=== PATIENT | male | born 1980 | race Caucasian/White ===

== ENCOUNTER 2018-11-07 03:08 | Emergency (ER) | payer MEDICAID ==
[~2018-11-07] VITALS: Ht 180.3 cm; Wt 89.4 kg
[2018-11-07] MEDS ORDERED: ABILIFY15 MG ORAL (03:21)
[2018-11-07] MEDS ORDERED: ATIVAN0.5 MG ORAL (03:21)
[2018-11-07] MEDS ORDERED: TEGRETOL200 MG PO (03:35)
--- NOTE | 2018-11-07 03:36 | Emergency Room Report ---
History of Present Illness General Chief Complaint: Medication Refill Source: Patient Present Illness HPI 37-year-old male, history of insomnia presents for medication refill he has no current complaints, he states he ran out of Tegretol 400 mg at night, denies any chest pain shortness of breath, abdominal pain he does endorse insomnia patient presents for medication refill Allergies: Coded Allergies: PENICILLINS (Verified Allergy, Unknown, 11/07/18) Patient History Past Medical History: see triage record Reviewed Nursing Documentation: PMH: Agreed; PSxH: Agreed Nursing Documentation-PMH History Of Psychiatric Problem: Yes - Bipolar Review of Systems All Other Systems: negative except mentioned in HPI Physical Exam Vital Signs Date Time Temp Pulse Resp B/P (MAP) Pulse Ox O2 Delivery O2 Flow Rate FiO2 11/07/18 03:15 98.1 90 16 128/81 (97) 96 Room Air Sp02 EP Interpretation: reviewed, normal General Appearance: well appearing, no apparent distress, alert Head: normocephalic, atraumatic Eyes: bilateral eye PERRL, bilateral eye EOMI ENT: uvula midline, moist mucus membranes Neck: supple, thyroid normal, supple/symm/no masses Respiratory: lungs clear, no respiratory distress, no retraction, no accessory muscle use Cardiovascular #1: normal peripheral pulses, regular rate, rhythm, no edema, no gallop, no murmur Gastrointestinal: non tender, soft, no guarding, no rebound Musculoskeletal: normal inspection Neurologic: alert, oriented x3 Psychiatric: mood/affect normal Skin: no rash, warm/dry Medical Decision Making Diagnostic Impression: Primary Impression: Encounter for medication refill ER Course Presents for medication refill, a small prescription was provided, patient was counseled to follow-up with a PCP, return precautions discussed Last Vital Signs Date Time Temp Pulse Resp B/P (MAP) Pulse Ox O2 Delivery O2 Flow Rate FiO2 11/07/18 03:15 98.1 90 16 128/81 (97) 96 Room Air Disposition: HOME, SELF-CARE Scripts Carbamazepine (TEGRETOL*) 200 Mg Tablet 400 MG PO QPM, #14 TAB Prov: Prasanna Gore MD 11/07/18 Referrals: [facility] Patient Instructions: Medicine Refill at the Emergency Department Additional Instructions: The patient was provided with discharge instructions, notified to follow-up with a primary care doctor and or specialist in the next 24-48 hours, and to return to the ED if they have worsening of their symptoms. Please note that this report is being documented using [employer] technology. This can lead to erroneous entry secondary to incorrect interpretation by the dictating instrument. Prasanna Gore MD Nov 07, 2018 03:36
[2018-11-07 03:40] VITALS: BP 128/81
--- NOTE | 2018-11-07 03:40 | NUR ---
ER DISCHARGE NOTE: Patient is cleared to be discharged per ERMD, pt is aox4, on room air, with stable vital signs. pt was given dc and prescription instructions, pt was able to verbalize understanding, pt id band removed without complications. pt is able to ambulate with steady gait. pt took all belongings.
== END 2018-11-07 03:40 | disposition home or self-care (01) ==
LOC: EMR 03:39
DX: Z76.0 Encounter for issue of repeat prescription (principal); G47.00 Insomnia, unspecified; Z88.0 Allergy status to penicillin; F31.9 Bipolar disorder, unspecified
CPT/HCPCS: 99282